=== PATIENT | female | born 1990 | race Caucasian/White ===

== ENCOUNTER 2024-05-15 07:25 | Emergency (ER) | payer OTHER ==
[2024-05-15 08:05] VITALS: TEMP 97.7; O2SAT 100
[2024-05-15 08:27] LABS: Absolute Neutrophil Ct (ANC) 4.12 x10^3/uL (1.56-6.13); BASOPHIL % 0.6 % (0.1-1.2); Basophil (Absolute #) 0.04 x10^3/uL (0.01-0.08); Eosinophil % 0.6 % (0.7-5.8); Eosinophil (Absolute #) 0.04 x10^3/uL (0.04-0.36); Hematocrit 35.9 % (34.1-44.9); Hemoglobin 11.9 g/dL (11.2-15.7); IMMATURE GRAN # 0.02 x10^3u/L (0.001-0.031); IMMATURE GRAN % 0.3 % (0.001-0.429); Lymphocyte (Absolute #) 2.15 x10^3/uL (1.18-3.74); Lymphocytes % 31.9 % (19.3-51.7); Mean Cell Volume 91.3 fL (79.4-94.8); Mean Corpuscular Hemoglobin 30.3 pg (25.6-32.2); Mean Corpuscular Hgb Concent. 33.1 g/dL (32.2-35.5); Mean Platelet Volume 10.6 fL (9.4-12.3); Monocyte (Absolute #) 0.38 x10^3/uL (0.24-0.86); Monocytes % 5.6 % (4.7-12.5); Platelet Count 164 x10^3/uL (182-369); Red Blood Count 3.93 x10^6/uL (3.93-5.22); Red Cell Distribution Width 12.6 % (11.7-14.4); White Blood Count 6.8 x10^3/uL (3.98-10.04)
[2024-05-15] MEDS ORDERED: PERCOCET TABLET 5/325MG ONE (08:35)
[2024-05-15] MEDS: PERCOCET TABLET 5/325MG PO ONE (08:37)
[2024-05-15 08:40] LABS: ALBUMIN 4.1 g/dL (3.5-5.0); BILIRUBIN,TOTAL 0.2 mg/dL (0.2-1.3); Calcium 8.6 mg/dL (8.4-10.2); Creatinine 1 0.83 mg/dL (0.52-1.04); Potassium 3.6 mmol/L (3.5-5.1); Total Protein 6.7 g/dL (6.3-8.2)
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
[2024-05-15 09:27] VITALS: BP 117/72; PULSE 89; RESP 12
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
== END 2024-05-15 09:47 | disposition home or self-care (01) ==
LOC: ED 07:25
DX: R07.81 Pleurodynia (principal); V89.2XXA Person injured in unspecified motor-vehicle accident, traffic, initial encounter
CPT/HCPCS: 36415; 71260; 80053; 84484; 85025; 93005; 99284; A9270-GY